=== PATIENT | female | born 1990 | race Hispanic/Latino ===

== ENCOUNTER 2017-05-26 01:26 | Inpatient (IN) | payer OTHER ==
[~2017-05-26] VITALS: Ht 149.9 cm; Wt 81.6 kg
[2017-05-26 04:20] LABS: ABSOLUTE BASOPHIL COUNT 0 /CUMM (0.0-0.2); ABSOLUTE EOSINOPHIL COUNT 0 /CUMM (0.0-0.7); ABSOLUTE GRANULOCYTE CT 9.5 /CUMM (1.4-6.5); ABSOLUTE LYMPH COUNT 1.6 /CUMM (1.2-3.4); ABSOLUTE MONOCYTE COUNT 0.8 /CUMM (0.10-0.60); BASOPHIL % 0.3 % (0.0-2.0); EOSINOPHIL % 0.2 % (0-5); GRANULOCYTE % 79.4 % (42.2-75.2); MEAN CORPUSCULAR HGB 24.7 PG (27.0-31.0); MEAN CORPUSCULAR VOLUME 77.2 FL (81.0-99.0); MEAN PLATELET VOLUME 9.7 FL (7.4-10.4); PLATELET COUNT 214 /CUMM (130-400); RBC DISTRIBUTION WIDTH 17.5 % (11.5-14.5); RED BLOOD CELL CT 4.15 /CUMM (4.20-5.40)
--- NOTE | 2017-05-26 08:09 | History & Physical ---
General Information and HPI MD Statement: I have seen and personally examined WILLIE GUEVARA and documented this H&P. The patient is a 26 year old female at 39[] weeks and [1] days gestation who presented with a chief complaint of LABOR[]. History of Present Illness: 26 YO IN ACTIVE LABOR. PNC COMPLETE AND UNREMARKABLE. EFW 8.5-9 LBS. 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 EENTM: Reports: no symptoms. Cardiovascular: Reports: no symptoms. Respiratory: Reports: no symptoms. GI: Reports: no symptoms. Genitourinary: Reports: see HPI. Musculoskeletal: Reports: no symptoms. Skin: Reports: no symptoms. Neurological/Psychological: Reports: no symptoms. Hematologic/Endocrine: Reports: no symptoms. Immunologic/Allergic: Reports: no symptoms. All Other Systems: Reviewed and Negative Exam & Diagnostic Data Last 24 Hrs of Vital Signs/I&O Intake & Output 05/26 1600 05/26 0800 05/26 0000 Intake Total Output Total Balance Patient 180 lb Weight Obstetric Exam Wgt Gained During : 40 Pelvimetry: GYNECOID Dilation (cm): 4 Effacement (%): 80 Station: -2 Membranes: intact Fluid: unknown Fundal Height (cm): 41 Multiple Gestation? No Contractions: Q 3 Infant #1 - FHR Baseline: 140 Category: 1 Estimated Weight: 8.5-9 Presentation: CEPHALIC Patient for Induction? No Labs Blood Type & Rh: O POS Antibody Screen: NEG Hct/Hgb & Platelets #1: Hct/Hgb & Platelets #2: Rubella: IMM VDRL #1: NR VDRL #2: NR HbsAg: NEG HIV #1: NEG HIV #2 NEG 1 Hr P Group B Strep: NEG Initial Ultrasound: WNL Anatomy Ultrasound: WNL Ultrasound for EFW: 7 (05/09/17) Genetic Testing: NEG Last 24 Hrs of Labs/Rito: Laboratory Tests 05/26/17 0345: CBC w Diff NO MAN DIFF REQ, RBC 4.15 L, MCV 77.2 L, MCH 24.7 L, RDW 17.5 H, MPV 9.7, Gran % 79.4 H, Lymphocytes % 13.7 L, Monocytes % 6.4, Eosinophils % 0.2, Basophils % 0.3, Absolute Granulocytes 9.5 H, Absolute Lymphocytes 1.6, Absolute Monocytes 0.8 H, Absolute Eosinophils 0, Absolute Basophils 0, PUBS MCHC 32.0 L, Urine Opiates Screen < 100.00, Methadone Screen < 40, Barbiturate Screen < 60, Ur Phencyclidine Scrn < 6.00, Amphetamines Screen < 100, U Benzodiazepines Scrn < 85, Urine Cocaine Screen < 50, Urine Cannabis Screen < 5.00, Urinalysis LIGHT H, Urine Color STRAW, Urine Clarity CLEAR, Urine pH 6.5, Ur Specific [place] 1.015, Urine Protein NEG, Urine Ketones NEG, Urine Nitrite NEG, Urine Bilirubin NEG, Urine Urobilinogen 0.2, Ur Leukocyte Esterase NEG, Ur Microscopic SEDIMENT EXAMINED, Urine RBC 3-5, Urine WBC 1-3 H, Ur Epithelial Cells MOD H, Urine Bacteria MANY H, Urine Mucus MOD H, Urine Hemoglobin TRACE -LYSED, Urine Glucose NEG Assessment/Plan Assessment/Plan: ACTIVE LABOR 39 WK EXPECTANT MGMT As Ranked By This Provider Problem List: 1. Core Measures/Miscellaneous Venous Thromboembolism VTE Risk Factors: / VTE Contraindications: No Contraindications VTE Diagnosis: No Beta [place] Is Beta Geneva a Home Med? No Antibiotics Is Patient on Antibiotics? No
--- NOTE | 2017-05-26 20:08 | PN- Obstetrical ---
Subjective Subjective: no c/o Review of Systems: neg Objective Last 24 Hrs of Vital Signs/I&O Intake & Output 05/26 1600 05/26 0800 05/26 0000 Intake Total Output Total Balance Patient 180 lb Weight Physical Exam: bp wnl Cx 9/90/-2 FH cat 1 UC q 2 w IUPC Obstetric Exam Dilation (cm): 9 Effacement (%): 90 Station: -2 Membranes: AROM Fluid: light meconium Multiple Gestation? No Contractions: q2 #1 - FHR Baseline: 140 Category: 1 Estimated Weight: 8.5-9 Presentation: CEPHALIC Assessment/Plan Assessment/Plan arrest of dilatation probable CPD primary c section Problem List: 1.
--- NOTE | 2017-05-26 21:47 | Labor & Delivery Summary ---
Delivery Summary Section: Section: primary Indication: arrest of dilatation Anesthesia: epidural Placenta: Placenta: normal, 3 vessel, manual Baby's Weight: 7-13 Apgars - 1 Min: 9 Apgars - 5 Min: 9
--- NOTE | 2017-05-26 21:52 | Operative Report ---
Operative/Inv Procedure Report Surgery Date: 05/26/17 Name of Procedure: Primary section Pre-Operative Diagnosis: Arrest of dilatation; cephalic pelvic disproportion Post-Operative Diagnosis: Same Estimated Blood Loss: 650 mL Surgeon/Commercial Artist: CAMILA POST MD,Gurdeep Carranza M.D. Anesthesia: epidural Operative/Procedure Note Note: The patient was brought to the operating room and placed on the OR table in the dorsal supine position. Her epidural was bolused and tested. Lee catheter had previously been placed and was still draining clear yellow urine. Venodyne boots were placed and activated. The abdomen was prepped and draped in usual sterile fashion. A Pfannenstiel skin incision was made with the scalpel taken down to the layer of the fascia. The fascia was nicked in the midline and extended bilaterally. The underlying rectus muscles were off the fascia sharply. The peritoneal cavity was entered sharply. This was extended. About a bladder blade was inserted to protect the bladder. A low bladder flap was created using Metzenbaum scissors. This was placed placed behind the bladder blade. A low transverse uterine incision was made with the scalpel. Thin wall. Membranes were opened and light meconium was noted. A liveborn female infant was delivered from direct transverse position atraumatically and handed off to the waiting pediatricians. Placenta was then manually removed intact. The uterus was exteriorized and wiped clean with a wet lap sponge. There was some uterine atony noted so Methergine was given 1. The uterine incision was closed in 2 layers of 0 Polysorb, the second imbricating the first. The pelvis and abdomen were copiously irrigated with warm saline. The uterus was placed back into the abdominal cavity and the suture line was once again visualized and noted to be hemostatic. The peritoneum was closed using 2-0 Polysorb in a running nonlocking fashion. Rectus muscles were reapproximated in 2 mattress sutures of 0 Polysorb. This fascia was then closed using 0 Polysorb in a running nonlocking fashion. Subcutaneous tissues were irrigated and coagulated were needed. Skin was closed using sofy a dry sterile dressing was applied to the wound. The fundus was expressed patient was transferred to recovery in good condition. All needle, sponge, and instrument counts were correct at the end of the procedure 2.
[2017-05-26 23:53] VITALS: BP 115/59
[2017-05-27 08:37] LABS: ABSOLUTE BASOPHIL COUNT 0 /CUMM (0.0-0.2); ABSOLUTE EOSINOPHIL COUNT 0 /CUMM (0.0-0.7); ABSOLUTE GRANULOCYTE CT 11.5 /CUMM (1.4-6.5); ABSOLUTE LYMPH COUNT 1.6 /CUMM (1.2-3.4); ABSOLUTE MONOCYTE COUNT 1.2 /CUMM (0.10-0.60); BASOPHIL % 0.2 % (0.0-2.0); EOSINOPHIL % 0.2 % (0-5); HEMATOCRIT 28.4 % (37-47); MEAN CORPUSCULAR HGB 25.1 PG (27.0-31.0); MEAN CORPUSCULAR HGB CONC 32.2 G/DL (33.0-37.0); MEAN CORPUSCULAR VOLUME 77.7 FL (81.0-99.0); MEAN PLATELET VOLUME 9.8 FL (7.4-10.4); PLATELET COUNT 185 /CUMM (130-400); RBC DISTRIBUTION WIDTH 18.4 % (11.5-14.5); RED BLOOD CELL CT 3.65 /CUMM (4.20-5.40); WHITE BLOOD CELL COUNT 14.4 /CUMM (4.8-10.8)
--- NOTE | 2017-05-27 13:00 | PN- Post Delivery/GYN ---
Subjective Subjective: NO C/O Review of Systems: NEG Objective Last 24 Hrs of Vital Signs/I&O Vital Signs Date Time Temp Pulse Resp B/P B/P Pulse O2 O2 Flow FiO2 Mean Ox Delivery Rate 05/26 2353 115/59 Physical Exam: FF INCISION C/D/I EXT NT Assessment/Plan Assessment/Plan S/P C/S POD1 STABLE ROUTINE POST OP CARE Problem List: 1.
[2017-05-27] MEDS ORDERED: IBUPROFEN800 M1 PO (17:19)
[2017-05-27] MEDS ORDERED: PERCOCET 5-3251 EACH PO (17:19)
--- NOTE | 2017-05-28 11:29 | PN- Post Delivery/GYN ---
Subjective Subjective: NO COMPLAINTS Objective Last 24 Hrs of Vital Signs/I&O PE PLEASANT HF IN NAD ABD SOFT NT INCISION CDI LOCHIA MINMAL FUNDUS FIRM NT EXT -EDEMA -HOMANS Assessment/Plan Assessment/Plan ASSESS S/P C/S PLAN CONT PPC
== END 2017-05-29 11:40 | DRG 540 ==
LOC: CBCO 01:26 → GNO 03:28
PROVIDERS: ADMIT Obstetrics & Gynecology
PROC: 10D00Z1 Extraction of Products of Conception, Low, Open Approach (ICD-10-PCS; principal; 2017-05-26)
DX: O33.9 Maternal care for disproportion, unspecified (principal); O62.1 Secondary uterine inertia; Z3A.39 39 weeks gestation of pregnancy; Z37.0 Single live birth
CPT/HCPCS: GNOP; 80307; 81001; 87086; G0463; J0690; J1200; J1885; J2210; J2270; J2405; J7120